=== PATIENT | male | born 1960 | race Asian ===

== ENCOUNTER 2016-04-23 11:45 | Emergency (ER) | payer OTHER ==
--- NOTE | 2016-04-23 14:46 | ED ORDER SUMMARY ---
..... Patient: KAMERON DOMINGO JR OrderSheet [facility] VisitID: [id number] [place] [address] 55y, M Registration Date/Time: 04/23/2016 ORDER SHEET Weight: 66.2 kg Allergies: No Known Drug Allergy GENERAL ORDERS: EKG - ER Stat (11:56 04/23/2016 SBalde R.N. per protocol) (Ack 11:57 LTapper) (12:07 SBalde R.N.) POC Glucose (11:56 04/23/2016 SBalde R.N. per protocol) (12:07 SBalde R.N.) Cardiac Panel Stat (12:04/23/2016 [facility]) (Ack 12:10 LTapper) (12:56 SBalde R.N.) TSH Urgent (12:04/23/2016 [facility]) (Ack 12:10 LTapper) (12:56 SBalde R.N.) Urine Drug Screen Urgent (12:04/23/2016 [facility]) (Ack 12:10 LTapper) (13:35 SBalde R.N.) UA-Culture if indicated Urgent (12:04/23/2016 [facility]) (Ack 12:10 LTapper) (13:35 SBalde R.N.) BNP Urgent (12:04/23/2016 [facility]) (Ack 12:10 LTapper) (12:56 SBalde R.N.) Driver Service Technician (Continuous) (12:04/23/2016 [facility]) (12:56 SBalde R.N.) MEDICATION ORDERS: IV FLUIDS: IV NS : initial bolus 500 mL (1000 mL/hr), then 500 mL/hr for X2 (NOW) (12:04/23/2016 [facility]) (12:56 SBalde R.N.) ORDER SHEET NOTES: [Electronically signed by Constanza Bowser R.N. (16:44 04/23/2016)] [Electronically signed by Stefan Vital DO (11:01 04/24/2016)] [Electronically locked/signed by Constanza Bowser R.N. (16:44 04/23/2016)]
--- NOTE | 2016-04-23 14:46 | ED NURSING NOTES ---
Clinical Report - Nurses [place] [address] [place] [address] 04/23/2016 11:46 [id number] Triage time 11:48 Apr 23 2016. Acuity: LEVEL 2. Chief Complaint: PALPITATIONS. Alert. No acute distress. FRANK COMA SCORE: Frank Coma Scale: 15- eyes open spontaneously (4); best verbal response- oriented x 4 (5); best motor response- obeys commands (6). --11:54 Constanza Bowser R.N. 11:48 04/23/16. BP: 113/78. HR: 80. RR: 18. O2 saturation: 98%. Temp: 98.2 F. Pain level now 0/10. --11:54 Constanza Bowser R.N. Weight: 66.2 kg. Height/Length: 66 inches. BMI: 23.6. --11:48 Constanza Bowser R.N. Medications MetFORMIN HCl Oral 500 mg, 2x a day. --11:52 Constanza Bowser R.N. Zyrtec. --11:52 Constanza Bowser R.N. Singulair Oral. --11:52 Constanza Bowser R.N. Qvar Inhalation, as needed. --11:52 Constanza Bowser R.N. Alfuzosin HCl ER Oral. --11:52 Constanza Bowser R.N. Allergies No Known Drug Allergy. --11:51 Constanza Bowser R.N. Medication/allergy information source: the patient. --11:54 Constanza Bowser R.N. History Arrived by private vehicle. Historian: patient. Primary physician ([facility]). ( 'Heart Palpitations since last week". "It's annoying, not painful, no chest pain". "Just getting over from being sick".). Onset. (1 week). Treatment CYCLE TOURING GUIDE: None. SOCIAL HX: Heavy tobacco smoker (cigarette)- less than 1 pack per day. No alcohol use or drug use. No infectious disease exposure. FALL RISK ASSESSMENT: Fall risk assessment completed. No fall risk identified. NUTRITIONAL RISK ASSESSMENT: The nutritional risk assessment revealed no deficiencies. FUNCTIONAL ASSESSMENT: Functional assessment: no impairments noted. LEARNING NEEDS ASSESSMENT: The learning needs assessment revealed no barriers. SKIN INTEGRITY ASSESSMENT: Skin integrity risk assessment completed. No skin integrity risk identified. --11:54 Constanza Bowser R.N. PROBLEMS: Diabetes Mellitus. Asthma. --11:53 Constanza Bowser R.N. ADDITIONAL SURGERIES: Nose Sx. --11:53 Constanza Bowser R.N. Interventions ID band on patient. To room. --11:54 Constanza Bowser R.N. PHYSICAL ASSESSMENT Ambulatory to room. GENERAL / NEURO / PSYCH: Oriented X 4. Appears anxious. HEENT: Pupils equal, round and reactive to light. RESPIRATORY: Respirations not labored. CVS: Cardiac rhythm: normal sinus rhythm; PVCs. SKIN: Skin is warm and dry. --11:55 Constanza Bowser R.N. NURSING PROGRESS NOTES table runner, pulse oximeter and NIBP monitor placed on patient; embedded engineer- Lead II. Patient gowned. Patient ready for evaluation- chart flagged and ED physician notified. --11:55 Constanza Bowser R.N. Cardiac rhythm: normal sinus rhythm; PVCs. Patient identifiers checked. Call light placed in reach. Side rails up x 2. Bed placed in lowest position. Brakes of bed on. --11:55 Constanza Bowser R.N. EKG time: (11:57 AM). EKG was performed by merna jha and shown to the ED physician. --12:02 Lynn Nunn Finger stick glucose: 147. --12:07 Constanza Bowser R.N. 12:30 04/23/2016 Started bag #1 1000 mL IV Fluids IV NS (Saline); at 1000 mL/hr over 1 hour(s) via site #1. Completed per protocol. --12:56 Constanza Bowser R.N. 12:55 04/23/2016 Site #1 started via IV in the right wrist with an 20g angiocath; one attempt. Blood drawn: rainbow set. Labeled in the presence of the patient. Saline lock flushed with saline. --12:55 Constanza Bowser R.N. 13:35 04/23/2016 IV Fluids IV NS Discontinued: bag #1 infused. Total amount infused: 1000 mL. IV patency established. IV site checked: no pain, redness, or swelling. IV flushed thoroughly. --13:35 Constanza Bowser R.N. DISPOSITION / DISCHARGE Cardiac rhythm: normal sinus rhythm. Departure time: 15:05 Apr 23 2016. Condition at departure: improved and stable. No learning barriers present. Patient verbalized understanding. Written instructions provided in Faroese. No medication instructions. The patient was discharged by the physician. He was discharged home and accompanied by spouse. He left the Emergency Department ambulatory and via private vehicle. Spouse driving. --16:40 Constanza Bowser R.N. 16:39 04/23/16. BP: 112/77. HR: 80. RR: 16. O2 saturation: 100%. Pain level now 0/10. --16:40 Constanza Bowser R.N. Locked/Released at 04/23/2016 16:44 by Constanza Bowser R.N.
--- NOTE | 2016-04-23 14:46 | ED NURSING NOTES ---
Clinical Report - Nurses [place] [place] [address] 04/23/2016 11:46 [id number] TRI[facility] Triage time 11:48 Apr 23 2016. Acuity: LEVEL 2. Chief Complaint: PALPITATIONS. Alert. No acute distress. FRANK COMA SCORE: Frank Coma Scale: 15- eyes open spontaneously (4); best verbal response- oriented x 4 (5); best motor response- obeys commands (6). --11:54 Constanza Bowser R.N. 11:48 04/23/16. BP: 113/78. HR: 80. RR: 18. O2 saturation: 98%. Temp: 98.2 F. Pain level now 0/10. --11:54 Constanza Bowser R.N. Weight: 66.2 kg. Height/Length: 66 inches. BMI: 23.6. --11:48 Constanza Bowser R.N. Medications MetFORMIN HCl Oral 500 mg, 2x a day. --11:52 Constanza Bowser R.N. Zyrtec. --11:52 Constanza Bowser R.N. Singulair Oral. --11:52 Constanza Bowser R.N. Qvar Inhalation, as needed. --11:52 Constanza Bowser R.N. Alfuzosin HCl ER Oral. --11:52 Constanza Bowser R.N. Allergies No Known Drug Allergy. --11:51 Constanza Bowser R.N. Medication/allergy information source: the patient. --11:54 Constanza Bowser R.N. History Arrived by private vehicle. Historian: patient. Primary physician ([facility]). ( 'Heart Palpitations since last week". "It's annoying, not painful, no chest pain". "Just getting over from being sick".). Onset. (1 week). Treatment PHYSICIAN PRACTICE MARKET MANAGER: None. SOCIAL HX: Heavy tobacco smoker (cigarette)- less than 1 pack per day. No alcohol use or drug use. No infectious disease exposure. FALL RISK ASSESSMENT: Fall risk assessment completed. No fall risk identified. NUTRITIONAL RISK ASSESSMENT: The nutritional risk assessment revealed no deficiencies. FUNCTIONAL ASSESSMENT: Functional assessment: no impairments noted. LEARNING NEEDS ASSESSMENT: The learning needs assessment revealed no barriers. SKIN INTEGRITY ASSESSMENT: Skin integrity risk assessment completed. No skin integrity risk identified. --11:54 Constanza Bowser R.N. PROBLEMS: Diabetes Mellitus. Asthma. --11:53 Constanza Bowser R.N. ADDITIONAL SURGERIES: Nose Sx. --11:53 Constanza Bowser R.N. Interventions ID band on patient. To room. --11:54 Constanza Bowser R.N. PHYSICAL ASSESSMENT Ambulatory to room. GENERAL / NEURO / PSYCH: Oriented X 4. Appears anxious. HEENT: Pupils equal, round and reactive to light. RESPIRATORY: Respirations not labored. CVS: Cardiac rhythm: normal sinus rhythm; PVCs. SKIN: Skin is warm and dry. --11:55 Constanza Bowser R.N. NURSING PROGRESS NOTES monitor technician, pulse oximeter and NIBP monitor placed on patient; monitoring engineer- Lead II. Patient gowned. Patient ready for evaluation- chart flagged and ED physician notified. --11:55 Constanza Bowser R.N. Cardiac rhythm: normal sinus rhythm; PVCs. Patient identifiers checked. Call light placed in reach. Side rails up x 2. Bed placed in lowest position. Brakes of bed on. --11:55 Constanza Bowser R.N. EKG time: (11:57 AM). EKG was performed by merna jha and shown to the ED physician. --12:02 Lynn Nunn Finger stick glucose: 147. --12:07 Constanza Bowser R.N. 12:30 04/23/2016 Started bag #1 1000 mL IV Fluids IV NS (Saline); at 1000 mL/hr over 1 hour(s) via site #1. Completed per protocol. --12:56 Constanza Bowser R.N. 12:55 04/23/2016 Site #1 started via IV in the right wrist with an 20g angiocath; one attempt. Blood drawn: rainbow set. Labeled in the presence of the patient. Saline lock flushed with saline. --12:55 Constanza Bowser R.N. 13:35 04/23/2016 IV Fluids IV NS Discontinued: bag #1 infused. Total amount infused: 1000 mL. IV patency established. IV site checked: no pain, redness, or swelling. IV flushed thoroughly. --13:35 Constanza Bowser R.N. DISPOSITION / DISCHARGE Cardiac rhythm: normal sinus rhythm. Departure time: 15:05 Apr 23 2016. Condition at departure: improved and stable. No learning barriers present. Patient verbalized understanding. Written instructions provided in Tristanian. No medication instructions. The patient was discharged by the physician. He was discharged home and accompanied by spouse. He left the Emergency Department ambulatory and via private vehicle. Spouse driving. --16:40 Constanza Bowser R.N. 16:39 04/23/16. BP: 112/77. HR: 80. RR: 16. O2 saturation: 100%. Pain level now 0/10. --16:40 Constanza Bowser R.N. Locked/Released at 04/23/2016 16:44 by Constanza Bowser R.N.
--- NOTE | 2016-04-23 14:46 | ED CLINICAL REPORT ---
Clinical Report - Physicians/Mid Levels [facility] [place] [address] [place] [address] 04/23/2016 11:46 Patient: KAMERON DOMINGO JR Time Seen: 12:04. Arrived- By private vehicle. Historian- patient. HISTORY OF PRESENT ILLNESS Chief Complaint: PALPITATIONS. It is described as an irregular heart beat and missing beats. This started about 1 week ago and is still present. Onset during rest. History of caffeine use prior to onset and decongestants use prior to onset. No history of cocaine use prior to onset or amphetamine use prior to onset. It was gradual in onset and has been waxing/waning. Modifying factors. Not worsened by anything. Not relieved by anything. No chest pain or discomfort, difficulty breathing, fainting episodes or dizziness. ( Had "the flu" about 2 weeks ago took decongestants (but none for about 1 week)). Similar symptoms previously: None. Recent medical care: Not recently seen/assessed. REVIEW OF SYSTEMS No fever, chills, orthopnea, calf pain or headache. No sore throat, blurred vision, nausea, abdominal pain or black stools. No difficulty with urination, skin rash, vomiting, diarrhea or bloody stools. The patient has had a cough (1 week ago). Psych: he feels anxious about the palpitations. All systems otherwise negative, except as recorded above. PAST HISTORY Type II diabetes mellitus treated with oral med. PCP: [facility] Asthma DM II (oral meds) Prior stone fish sting to left foot (over 10 years ago). No history of atrial fibrillation, congestive heart failure, valvular heart disease, thyroid disease or coronary artery disease. No history of cardiomegaly. Has not had depression. Medications: Alfuzosin HCl ER Oral. Qvar Inhalation, as needed. Singulair Oral. Zyrtec. MetFORMIN HCl Oral 500 mg, 2x a day. Allergies: No Known Drug Allergy. SOCIAL HISTORY Smoker- current status unknown. No alcohol use or drug use. Is a local resident. ADDITIONAL NOTES The nursing notes have been reviewed. PHYSICAL EXAM Vital Signs: 04/23/2016 11:48 BP: 113/78. HR: 80. RR: 18. O2 saturation: 98%. Temp: 98.2 F. Appearance: Alert. Oriented X3. No acute distress. Eyes: Pupils equal, round and reactive to light. Eyes normal inspection. ENT: Nose normal. Pharynx normal. Neck: Normal inspection. Neck supple. No JVD, meningeal signs, lymphadenopathy or thyromegaly. CVS: Abnormal rhythm, which is irregularly irregular with brief pauses. Normal heart rate and rhythm. Heart sounds normal. Pulses normal. Respiratory: No respiratory distress. Breath sounds normal. Chest nontender. Abdomen: Soft and nontender. Bowel sounds normal. No mass. Back: Normal external inspection. Skin: No cyanosis. Skin warm and dry. Normal skin color. No rash. Normal skin turgor. Skin not cool on palpation. No pallor or diaphoresis. Extremities: Extremities exhibit normal ROM. No calf tenderness. No lower extremity edema. Neuro: Oriented X 3. No motor deficit. No sensory deficit. LABS, X-RAYS, AND EKG EKG: EKG time: (11:57). Normal sinus rhythm. Rate: 75. Occasional unifocal ectopic beats. Premature ventricular contractions. No runs of ectopic beats. Normal LUIS E. Normal QRS complex. Normal axis. Normal ST and T waves. The study has been interpreted contemporaneously by me. The EKG appears to be a good tracing. Rhythm Strip #1: Normal sinus rhythm. Occasional unifocal premature ventricular contractions. Laboratory Tests: UA-Culture if indicated: (MEGHAN: 04/23/2016 12:30) ( MsgRcvd 04/23/2016 12:49) Final results Test Result Flag Units (Reference) URINE COLOR YELLOW URINE APPEARANCE CLEAR URINE GLUCOSE NEGATIVE (NEGATIVE) URINE BILIRUBIN NEGATIVE (NEGATIVE) URINE KETONE NEGATIVE (NEGATIVE) URINE SPECIFIC GRAVITY <= 1.005 L (1.010-1.030) URINE PH 6.0 (5.0-8.0) URINE PROTEIN NEGATIVE (NEGATIVE) URINE UROBILINOGEN 0.2 EU/dL (0.2-1.0) URINE NITRITE NEGATIVE (NEGATIVE) URINE BLOOD NEGATIVE (NEGATIVE) URINE LEUK ESTERASE NEGATIVE (NEGATIVE) URINE RBC RARE rbc/hpf (0-1) URINE WBC NONE SEEN wbc/hpf (0-1) URINE EPITHELIAL CELLS RARE EPI/hpf (0-5) URINE BACTERIA NONE SEEN (NONE SEEN) URINE COMMENT CULT NOT INDICATED URINE CULTURES ARE SET-UP BASED ON THE FOLLOWING CRITERIA:POSITIVE NITRITEPOSITIVE LEUKOCYTE ESTERASEGREATER THAN 10 WHITE BLOOD CELLSMODERATE (2+) OR GREATER BACTERIA CBC w Diff: (MEGHAN: 04/23/2016 12:30) ( [facility] 04/23/2016 12:37) Final results Test Result Flag Units (Reference) WHITE BLOOD COUNT 4.8 K/uL (4.5-11.5) RED BLOOD COUNT 4.75 M/uL (4.50-5.90) HEMOGLOBIN 14.2 gm/dL (13.5-17.5) HEMATOCRIT 42.8 % (41.0-53.0) MEAN CELL VOLUME 90 fL (80-100) MEAN CORPUSCULAR HGB 30 pg (26-34) MEAN CORPUSCULAR HGB CONC 33 g/dL (31-37) RED CELL DISTRIBUTION WIDTH 13.1 % (11.6-14.8) PLATELET COUNT 186 K/uL (150-400) NEUTROPHIL % 51.2 % (50-75) LYMPH % 35.2 % (25-40) MONO % 11.8 % (3-14) EOSINOPHIL % 1.1 % (0-4) BASOPHIL % 0.7 % (0-2) BNP: (MEGHAN: 04/23/2016 12:30) ( [facility] 04/23/2016 12:57) Final results Test Result Flag Units (Reference) B-TYPE NATRIURETIC PEPTIDE 9.2 pg/ml (5-100) Urine Drug Screen: (MEGHAN: 04/23/2016 12:30) ( [facility] 04/23/2016 13:21) Final results Test Result Flag Units (Reference) AMPHETAMINE/METHAMPHETAMINE NEGATIVE (NEGATIVE) BARBITURATE NEGATIVE (NEGATIVE) BENZODIAZEPINE NEGATIVE (NEGATIVE) CANNABINOID NEGATIVE (NEGATIVE) COCAINE NEGATIVE (NEGATIVE) ECSTASY NEGATIVE (NEGATIVE) METHADONE NEGATIVE (NEGATIVE) OPIATE NEGATIVE (NEGATIVE) The urine drug screen is a qualitative screening test fordrug overdose and abuse. All screen results should beconsidered as presumptive.Drugs screened for are as follows:BenzodiazepinesCocaineAmphetamines/MetamphetaminesTHC (Tetrahydrocannabinol)OpiatesBarbituratesEcstasyMethadonePositive results are unconfirmed. For confirmation, notifythe lab for the specimen to be sent to the reference lab.All confirmations must be performed by a differentmethodology.The ingestion of natural herbal and plant productscontaining Ephedra/Ephedra metabolites can produce in urineone or more substances capable of cross reacting withamphetamine/methamphetamine immunoassays. These testsprovide a preliminary result only. A more specificalternative chemical method must be used to obtain aconfirmed analytical result. CPK: (MEGHAN: 04/23/2016 12:30) ( MsgRcvd 04/23/2016 13:19) Final results Test Result Flag Units (Reference) GLUCOSE 141 H mg/dL (70-110) BUN 11 mg/dL (7-18) CREATININE 0.9 mg/dL (0.6-1.3) Estimated GFR >60 mL/min Estimated GFR- >60 mL/min Note: Persistent reduction over 3 months in eGFR<60 mL/min/1.73 m2 defines CKD. Patients with eGFR values>=60 mL/min/1.73 m2 may also have CKD if evidence ofpersistent proteinuria. Additional information may be foundat www.kidney.org. SODIUM 142 mmol/L (136-145) POTASSIUM 4.0 mmol/L (3.5-5.1) CHLORIDE 108 H mmol/L (98-107) CARBON DIOXIDE 26 mmol/L (21-32) CALCIUM 8.6 mg/dL (8.5-10.1) TOTAL PROTEIN 7.1 g/dL (6.4-8.2) ALBUMIN 3.8 g/dL (3.3-5.0) BILIRUBIN, TOTAL 0.7 mg/dL (0.0-1.0) ALKALINE PHOSPHATASE 75 U/L (46-116) AST (SGOT) 14 L U/L (15-37) ALT (SGPT) 31 U/L (12-78) CPK 83 U/L (24-260) MAGNESIUM 1.8 mg/dL (1.8-2.4) TROPONIN I <0.05 ng/mL (0.00-1.5) TROPONIN REFERENCE RANGE:<0.1 NEGATIVE0.1-1.5 INDETERMINANT>1.5 POSITIVE THYROID STIMULATING HORMONE 1.012 uIU/mL (0.30-3.74) . Bedside Tests: Glucose: mild hyperglycemia - 147 (performed at bedside). Pulse Oximetry: 04/23/2016 11:48 O2 saturation: 98%. (FIO2 - room air). Interpretation: normal. PROGRESS AND PROCEDURES Course of Care: Normal Saline 1 liter IVPB given. Other than sensation of PVC - symptoms correlate to the PVC 's on the monitor, pt is asymptomatic. Labs unremarkable (mild hyperglycemia - known DM II). Patient/family counseled. Old ED records reviewed. Disposition: Discharged. Condition: stable and improved. CLINICAL IMPRESSION Palpitations Occasional PVC's. No multifocal PVC's, bigeminy or trigeminy. Chronic, moderately well controlled type 2 diabetes with hyperglycemia. No coma. INSTRUCTIONS Do not work for three days. Avoid stimulants (such as cigarettes, coffee, cold medicines, sinus medicines, street drugs). Do not smoke. Seek medical help to quit smoking. Warnings: Further evaluation is necessary in order to obtain test results and conduct further tests. It is very important to follow up with a physician. GENERAL WARNINGS: Return or contact your physician immediately if your condition worsens or changes unexpectedly, if not improving as expected, or if other problems arise. Your Current Medications: CONTINUE TAKING THE FOLLOWING MEDICATIONS: Alfuzosin HCl ER Oral. MetFORMIN HCl Oral : 500 mg 2x a day. Qvar Inhalation : prn. Singulair Oral. Zyrtec*. OTC Medications: Aspirin 325 mg (available over the counter): take 1 orally every 24 hours. Dispense thirty (30). No refills. Follow-up: Follow up with your doctor tomorrow. (Electronically signed by Stefan Vital DO 04/24/2016 11:01)
--- NOTE | 2016-04-23 14:46 | ED ORDER SUMMARY ---
..... Patient: KAMERON DOMINGO JR OrderSheet [facility] VisitID: [id number] [place] [address] 55y, M Registration Date/Time: 04/23/2016 ORDER SHEET Weight: 66.2 kg Allergies: No Known Drug Allergy GENERAL ORDERS: EKG - ER Stat (11:56 04/23/2016 SBalde R.N. per protocol) (Ack 11:57 LTapper) (12:07 SBalde R.N.) POC Glucose (11:56 04/23/2016 SBalde R.N. per protocol) (12:07 SBalde R.N.) Cardiac Panel Stat (12:04/23/2016 [facility]) (Ack 12:10 LTapper) (12:56 SBalde R.N.) TSH Urgent (12:04/23/2016 [facility]) (Ack 12:10 LTapper) (12:56 SBalde R.N.) Urine Drug Screen Urgent (12:04/23/2016 [facility]) (Ack 12:10 LTapper) (13:35 SBalde R.N.) UA-Culture if indicated Urgent (12:04/23/2016 [facility]) (Ack 12:10 LTapper) (13:35 SBalde R.N.) BNP Urgent (12:04/23/2016 [facility]) (Ack 12:10 LTapper) (12:56 SBalde R.N.) Medical Appointment Scheduler (Continuous) (12:04/23/2016 [facility]) (12:56 SBalde R.N.) MEDICATION ORDERS: IV FLUIDS: IV NS : initial bolus 500 mL (1000 mL/hr), then 500 mL/hr for X2 (NOW) (12:04/23/2016 [facility]) (12:56 SBalde R.N.) ORDER SHEET NOTES: [Electronically signed by Constanza Bowser R.N. (16:44 04/23/2016)] [Electronically signed by Stefan Vital DO (11:01 04/24/2016)] [Electronically locked/signed by Constanza Bowser R.N. (16:44 04/23/2016)]
--- NOTE | 2016-04-24 11:02 | ED DISCHARGE INSTRUCTIONS ---
Patient: KAMERON DOMINGO JR General Instructions [facility] VisitID: [id number] [place] [address] 55y, M Registration Date/Time: 04/23/2016 Palpitations Occasional PVC's. No multifocal PVC's, bigeminy or trigeminy. Chronic, moderately well controlled type 2 diabetes with hyperglycemia. No coma. INSTRUCTIONS Do not work for three days. Avoid stimulants (such as cigarettes, coffee, cold medicines, sinus medicines, street drugs). Do not smoke. Seek medical help to quit smoking. Warnings: Further evaluation is necessary in order to obtain test results and conduct further tests. It is very important to follow up with a physician. GENERAL WARNINGS: Return or contact your physician immediately if your condition worsens or changes unexpectedly, if not improving as expected, or if other problems arise. Your Current Medications: CONTINUE TAKING THE FOLLOWING MEDICATIONS: Alfuzosin HCl ER Oral. MetFORMIN HCl Oral : 500 mg 2x a day. Qvar Inhalation : prn. Singulair Oral. Zyrtec*. OTC Medications: Aspirin 325 mg (available over the counter): take 1 orally every 24 hours. Dispense thirty (30). No refills. Follow-up: Follow up with your doctor tomorrow. ADDITIONAL INFORMATION Heart Palpitations Palpitations refers to the feeling that your heart is beating hard, fast or irregular. Some people describe it as "pounding" or "skipped beats". Palpitations may occur in persons with heart disease, but can also occur in healthy persons. Heart-Related Causes: Arrhythmia (a change from the heart's normal rhythm) Disease of the heart valves Wul-Noxtv-Xiyqrit Causes: Certain medicines (such as asthma inhalers and decongestants) Some herbal supplements, energy drinks and pills, and weight loss pills Illegal stimulant drugs (such as cocaine, crank, methamphetamine, PCP) Caffeine, alcohol and tobacco Medical conditions such as thyroid disease, anemia, anxiety and panic disorder Sometimes the cause cannot be found. Home Care: Avoid excess caffeine, alcohol, tobacco and any stimulant drugs. Tell your doctor about any prescription or [id number] or herbal medicines you take. Follow Up with your doctor or as advised by our staff. Get Prompt Medical Attention if any of the following occur together with palpitations: Weakness, dizziness, light-headed or fainting Chest pain or shortness of breath Rapid heart rate (over 120 beats per minute, at rest) Palpitations that lasts over 20 minutes Weakness of an arm or leg or one side of the face Difficulty with speech or vision Diabetes with High Blood Sugar You have been treated for high blood sugar (hyperglycemia). This may be becauseof an infection or other illness;eating too many sweets or starches ; not taking enough insulin. Home care High blood sugar may cause symptoms that you can learn to recognize, such as these: If you feel like your blood sugar may be too high, measure it using a blood or urine test. If it is above your usual range, use the "sliding scale"rRegular insulin dose your doctor gave you to correct this. If no "sliding scale" orders were given, contact your doctor for further advice. If your blood sugar is over 300, and you can't reach your doctor, go to the hospital emergency room. Monitor and write down your blood sugars - and insulin dose, if you take insulin - atleast twice a day. Do this before breakfast and before dinner. Do this for the next 3 to 5 days. Follow-up care Follow up with your health care provderduring the next week to review your blood sugar records. You will find out if you need to adjust your dose of insulin or other medicine for blood sugar. When to seek medical care Get prompt medical attention if either of these occur: High blood sugar.Symptoms are frequent urination, feeling dizzy, thirst, headache, nausea or vomiting, abdominal pain, and drowsiness or loss of consciousness. Low blood sugar. Symptoms are fatigue, headache, shakes, excess sweating, hunger, anxiety, reduced vision, drowsiness, weakness, confusion or loss of consciousness, and seizure. How To Quit Smoking Smoking is one of the hardest habits to break. About half of all those who have ever smoked have been able to quit, and most of those (about 70%) who still smoke want to quit. Here are some of the best ways to stop smoking. Keep Trying: It takes most smokers about 8 tries before they are finally able to fully quit. So, the more often you try and fail, the better your chance of quitting the next time! So, don't give up! Go Cold [place]: Most ex-smokers quit cold turkey. Trying to cut back gradually doesn't seem to work as well, perhaps because it continues the smoking habit. Also, it is possible to fool yourself by inhaling more while smoking fewer cigarettes. This results in the same amount of nicotine in your body! Get Support: Support programs can make an important difference, especially for the heavy smoker. These groups offer lectures, methods to change your behavior and peer support. Call the free national Quitline for more information. 786-OOSO-ITV (658-557-0232). Low-cost or free programs are offered by many hospitals, local chapters of the [place] [employer] (834-170-0961) and the [place] [employer] (938-681-3192). Support at home is important too. Non-smokers can help by offering praise and encouragement. If the smoker fails to quit, encourage them to try again! Yujg-Brp-Uydyrhg Medicines: For those who can't quit on their own, Nicotine Replacement Therapy (NRT) may make quitting much easier. Certain aids such as the nicotine patch, gum and lozenge are available without a prescription. However, it is best to use these under the guidance of your doctor. The skin patch provides a steady supply of nicotine to the body. Nicotine gum and lozenge gives temporary bursts of low levels of nicotine. Both methods take the edge off the craving for cigarettes. WARNING: If you feel symptoms of nicotine overdose, such as nausea, vomiting, dizziness, weakness, or fast heartbeat, stop using these and see your doctor. Prescription Medicines: After evaluating your smoking patterns and prior attempts at quitting, your doctor may offer a prescription medicine such as bupropion (Zyban, Wellbutrin), varenicline (Chantix, Champix), a niocotine inhaler or nasal spray. Each has its unique advantage and side effects which your doctor can review with you. Health Benefits Of Quitting: The benefits of quitting start right away and keep improving the longer you go without smokin minutes: blood pressure and pulse return to normal 8 hours: oxygen levels return to normal 2 days: ability to smell and taste begins to improve as damaged nerves start to regrow 2-3 weeks: circulation and lung function improves 1-9 months: decreased cough, congestion and shortness of breath; less tired 1 year: risk of heart attack decreases by half 5 years: risk of lung cancer decreases by half; risk of stroke becomes the same as a non-smoker For information about how to quit smoking, visit the following links: [employer] [place] , Clearing the Air, Quit Smoking Today - an online booklet. http://www.smokefree.gov/pubs/clearing_the_air.pdf Smokefree.gov http://smokefree.gov/ QuitNet http://www.quitnet.com/ Aspirin Oral tablet What is this medicine? ASPIRIN ( pir in) is a pain reliever. It is used to treat mild pain and fever. This medicine is also used as directed by a doctor to prevent and to treat heart attacks, to prevent strokes, and to treat arthritis or inflammation. How should I use this medicine? Take this medicine by mouth with a glass of water. Follow the directions on the package or prescription label. You can take this medicine with or without food. If it upsets your stomach, take it with food. Do not take your medicine more often than directed. Talk to your applique sewer regarding the use of this medicine in children. While this drug may be prescribed for children as young as 12 years of age for selected conditions, precautions do apply. Children and teenagers should not use this medicine to treat chicken pox or flu symptoms unless directed by a doctor. Patients over 65 years old may have a stronger reaction and need a smaller dose. What side effects may I notice from receiving this medicine? Side effects that you should report to your doctor or health health care recruiter as soon as possible: allergic reactions like skin rash, itching or hives, swelling of the face, lips, or tongue breathing problems changes in hearing, ringing in the ears confusion general ill feeling or flu-like symptoms pain on swallowing redness, blistering, peeling or loosening of the skin, including inside the mouth or nose signs and symptoms of bleeding such as bloody or black, tarry stools; red or dark-brown urine; spitting up blood or brown material that looks like coffee grounds; red spots on the skin; unusual bruising or bleeding from the eye, gums, or nose trouble passing urine or change in the amount of urine unusually weak or tired yellowing of the eyes or skin Side effects that usually do not require medical attention (report to your doctor or health health care recruiter if they continue or are bothersome): diarrhea or constipation nausea, vomiting stomach gas, heartburn What may interact with this medicine? Do not take this medicine with any of the following medications: cidofovir ketorolac probenecid This medicine may also interact with the following medications: alcohol alendronate bismuth subsalicylate flavocoxid herbal supplements like feverfew, garlic, rishi, ginkgo biloba, horse chestnut medicines for diabetes or glaucoma like acetazolamide, methazolamide medicines for gout medicines that treat or prevent blood clots like enoxaparin, heparin, ticlopidine, warfarin other aspirin and aspirin-like medicines NSAIDs, medicines for pain and inflammation, like ibuprofen or naproxen pemetrexed sulfinpyrazone varicella live vaccine What if I miss a dose? If you are taking this medicine on a regular schedule and miss a dose, take it as soon as you can. If it is almost time for your next dose, take only that dose. Do not take double or extra doses. Where should I keep my medicine? Keep out of the reach of children. Store at room temperature between 15 and 30 degrees C (59 and 86 degrees F). Protect from heat and moisture. Do not use this medicine if it has a strong vinegar smell. Throw away any unused medicine after the expiration date. What should I tell my health care provider before I take this medicine? They need to know if you have any of these conditions: anemia asthma bleeding problems child with chickenpox, the flu, or other viral infection diabetes gout if you frequently drink alcohol containing drinks kidney disease liver disease low level of vitamin K lupus smoke tobacco stomach ulcers or other problems an unusual or allergic reaction to aspirin, tartrazine dye, other medicines, dyes, or preservatives or trying to get breast-feeding What should I watch for while using this medicine? If you are treating yourself for pain, tell your doctor or health health care recruiter if the pain lasts more than 10 days, if it gets worse, or if there is a new or different kind of pain. Tell your doctor if you see redness or swelling. Also, check with your doctor if you have a fever that lasts for more than 3 days. Only take this medicine to prevent heart attacks or blood clotting if prescribed by your doctor or health health care recruiter. Do not take aspirin or aspirin-like medicines with this medicine. Too much aspirin can be dangerous. Always read the labels carefully. This medicine can irritate your stomach or cause bleeding problems. Do not smoke cigarettes or drink alcohol while taking this medicine. Do not lie down for 30 minutes after taking this medicine to prevent irritation to your throat. If you are scheduled for any medical or dental procedure, tell your healthcare provider that you are taking this medicine. You may need to stop taking this medicine before the procedure. You have been given the following additional information: Palpitations Diabetic Hyperglycemia Smoking Cessation Aspirin Oral tablet Do not work for three days. (Electronically signed by Stefan Vital DO 04/24/2016 11:01)
--- NOTE | 2016-04-24 11:02 | ED DISCHARGE INSTRUCTIONS ---
Patient: KAMERON DOMINGO JR General Instructions [facility] VisitID: [id number] [place] [address] 55y, M Registration Date/Time: 04/23/2016 Palpitations Occasional PVC's. No multifocal PVC's, bigeminy or trigeminy. Chronic, moderately well controlled type 2 diabetes with hyperglycemia. No coma. INSTRUCTIONS Do not work for three days. Avoid stimulants (such as cigarettes, coffee, cold medicines, sinus medicines, street drugs). Do not smoke. Seek medical help to quit smoking. Warnings: Further evaluation is necessary in order to obtain test results and conduct further tests. It is very important to follow up with a physician. GENERAL WARNINGS: Return or contact your physician immediately if your condition worsens or changes unexpectedly, if not improving as expected, or if other problems arise. Your Current Medications: CONTINUE TAKING THE FOLLOWING MEDICATIONS: Alfuzosin HCl ER Oral. MetFORMIN HCl Oral : 500 mg 2x a day. Qvar Inhalation : prn. Singulair Oral. Zyrtec*. OTC Medications: Aspirin 325 mg (available over the counter): take 1 orally every 24 hours. Dispense thirty (30). No refills. Follow-up: Follow up with your doctor tomorrow. ADDITIONAL INFORMATION Heart Palpitations Palpitations refers to the feeling that your heart is beating hard, fast or irregular. Some people describe it as "pounding" or "skipped beats". Palpitations may occur in persons with heart disease, but can also occur in healthy persons. Heart-Related Causes: Arrhythmia (a change from the heart's normal rhythm) Disease of the heart valves Xfw-Xmdni-Fbwtogt Causes: Certain medicines (such as asthma inhalers and decongestants) Some herbal supplements, energy drinks and pills, and weight loss pills Illegal stimulant drugs (such as cocaine, crank, methamphetamine, PCP) Caffeine, alcohol and tobacco Medical conditions such as thyroid disease, anemia, anxiety and panic disorder Sometimes the cause cannot be found. Home Care: Avoid excess caffeine, alcohol, tobacco and any stimulant drugs. Tell your doctor about any prescription or irgx-nsd-njgvqgx or herbal medicines you take. Follow Up with your doctor or as advised by our staff. Get Prompt Medical Attention if any of the following occur together with palpitations: Weakness, dizziness, light-headed or fainting Chest pain or shortness of breath Rapid heart rate (over 120 beats per minute, at rest) Palpitations that lasts over 20 minutes Weakness of an arm or leg or one side of the face Difficulty with speech or vision Diabetes with High Blood Sugar You have been treated for high blood sugar (hyperglycemia). This may be becauseof an infection or other illness;eating too many sweets or starches ; not taking enough insulin. Home care High blood sugar may cause symptoms that you can learn to recognize, such as these: If you feel like your blood sugar may be too high, measure it using a blood or urine test. If it is above your usual range, use the "sliding scale"rRegular insulin dose your doctor gave you to correct this. If no "sliding scale" orders were given, contact your doctor for further advice. If your blood sugar is over 300, and you can't reach your doctor, go to the hospital emergency room. Monitor and write down your blood sugars - and insulin dose, if you take insulin - atleast twice a day. Do this before breakfast and before dinner. Do this for the next 3 to 5 days. Follow-up care Follow up with your health care provderduring the next week to review your blood sugar records. You will find out if you need to adjust your dose of insulin or other medicine for blood sugar. When to seek medical care Get prompt medical attention if either of these occur: High blood sugar.Symptoms are frequent urination, feeling dizzy, thirst, headache, nausea or vomiting, abdominal pain, and drowsiness or loss of consciousness. Low blood sugar. Symptoms are fatigue, headache, shakes, excess sweating, hunger, anxiety, reduced vision, drowsiness, weakness, confusion or loss of consciousness, and seizure. How To Quit Smoking Smoking is one of the hardest habits to break. About half of all those who have ever smoked have been able to quit, and most of those (about 70%) who still smoke want to quit. Here are some of the best ways to stop smoking. Keep Trying: It takes most smokers about 8 tries before they are finally able to fully quit. So, the more often you try and fail, the better your chance of quitting the next time! So, don't give up! Go Cold [place]: Most ex-smokers quit cold turkey. Trying to cut back gradually doesn't seem to work as well, perhaps because it continues the smoking habit. Also, it is possible to fool yourself by inhaling more while smoking fewer cigarettes. This results in the same amount of nicotine in your body! Get Support: Support programs can make an important difference, especially for the heavy smoker. These groups offer lectures, methods to change your behavior and peer support. Call the free national Quitline for more information. 407-NSEJ-GBN (460-420-5859). Low-cost or free programs are offered by many hospitals, local chapters of the [place] [employer] (424-023-0277) and the [place] [employer] (582-774-6126). Support at home is important too. Non-smokers can help by offering praise and encouragement. If the smoker fails to quit, encourage them to try again! Qmnp-Sfw-Hpohgyu Medicines: For those who can't quit on their own, Nicotine Replacement Therapy (NRT) may make quitting much easier. Certain aids such as the nicotine patch, gum and lozenge are available without a prescription. However, it is best to use these under the guidance of your doctor. The skin patch provides a steady supply of nicotine to the body. Nicotine gum and lozenge gives temporary bursts of low levels of nicotine. Both methods take the edge off the craving for cigarettes. WARNING: If you feel symptoms of nicotine overdose, such as nausea, vomiting, dizziness, weakness, or fast heartbeat, stop using these and see your doctor. Prescription Medicines: After evaluating your smoking patterns and prior attempts at quitting, your doctor may offer a prescription medicine such as bupropion (Zyban, Wellbutrin), varenicline (Chantix, Champix), a niocotine inhaler or nasal spray. Each has its unique advantage and side effects which your doctor can review with you. Health Benefits Of Quitting: The benefits of quitting start right away and keep improving the longer you go without smokin minutes: blood pressure and pulse return to normal 8 hours: oxygen levels return to normal 2 days: ability to smell and taste begins to improve as damaged nerves start to regrow 2-3 weeks: circulation and lung function improves 1-9 months: decreased cough, congestion and shortness of breath; less tired 1 year: risk of heart attack decreases by half 5 years: risk of lung cancer decreases by half; risk of stroke becomes the same as a non-smoker For information about how to quit smoking, visit the following links: National Cancer [place] , Clearing the Air, Quit Smoking Today - an online booklet. http://www.smokefree.gov/pubs/clearing_the_air.pdf Smokefree.gov http://smokefree.gov/ QuitNet http://www.quitnet.com/ Aspirin Oral tablet What is this medicine? ASPIRIN ( pir in) is a pain reliever. It is used to treat mild pain and fever. This medicine is also used as directed by a doctor to prevent and to treat heart attacks, to prevent strokes, and to treat arthritis or inflammation. How should I use this medicine? Take this medicine by mouth with a glass of water. Follow the directions on the package or prescription label. You can take this medicine with or without food. If it upsets your stomach, take it with food. Do not take your medicine more often than directed. Talk to your tool and die technician regarding the use of this medicine in children. While this drug may be prescribed for children as young as 12 years of age for selected conditions, precautions do apply. Children and teenagers should not use this medicine to treat chicken pox or flu symptoms unless directed by a doctor. Patients over 65 years old may have a stronger reaction and need a smaller dose. What side effects may I notice from receiving this medicine? Side effects that you should report to your doctor or health critical care nurse specialist as soon as possible: allergic reactions like skin rash, itching or hives, swelling of the face, lips, or tongue breathing problems changes in hearing, ringing in the ears confusion general ill feeling or flu-like symptoms pain on swallowing redness, blistering, peeling or loosening of the skin, including inside the mouth or nose signs and symptoms of bleeding such as bloody or black, tarry stools; red or dark-brown urine; spitting up blood or brown material that looks like coffee grounds; red spots on the skin; unusual bruising or bleeding from the eye, gums, or nose trouble passing urine or change in the amount of urine unusually weak or tired yellowing of the eyes or skin Side effects that usually do not require medical attention (report to your doctor or health critical care nurse specialist if they continue or are bothersome): diarrhea or constipation nausea, vomiting stomach gas, heartburn What may interact with this medicine? Do not take this medicine with any of the following medications: cidofovir ketorolac probenecid This medicine may also interact with the following medications: alcohol alendronate bismuth subsalicylate flavocoxid herbal supplements like feverfew, garlic, rishi, ginkgo biloba, horse chestnut medicines for diabetes or glaucoma like acetazolamide, methazolamide medicines for gout medicines that treat or prevent blood clots like enoxaparin, heparin, ticlopidine, warfarin other aspirin and aspirin-like medicines NSAIDs, medicines for pain and inflammation, like ibuprofen or naproxen pemetrexed sulfinpyrazone varicella live vaccine What if I miss a dose? If you are taking this medicine on a regular schedule and miss a dose, take it as soon as you can. If it is almost time for your next dose, take only that dose. Do not take double or extra doses. Where should I keep my medicine? Keep out of the reach of children. Store at room temperature between 15 and 30 degrees C (59 and 86 degrees F). Protect from heat and moisture. Do not use this medicine if it has a strong vinegar smell. Throw away any unused medicine after the expiration date. What should I tell my health care provider before I take this medicine? They need to know if you have any of these conditions: anemia asthma bleeding problems child with chickenpox, the flu, or other viral infection diabetes gout if you frequently drink alcohol containing drinks kidney disease liver disease low level of vitamin K lupus smoke tobacco stomach ulcers or other problems an unusual or allergic reaction to aspirin, tartrazine dye, other medicines, dyes, or preservatives or trying to get breast-feeding What should I watch for while using this medicine? If you are treating yourself for pain, tell your doctor or health critical care nurse specialist if the pain lasts more than 10 days, if it gets worse, or if there is a new or different kind of pain. Tell your doctor if you see redness or swelling. Also, check with your doctor if you have a fever that lasts for more than 3 days. Only take this medicine to prevent heart attacks or blood clotting if prescribed by your doctor or health critical care nurse specialist. Do not take aspirin or aspirin-like medicines with this medicine. Too much aspirin can be dangerous. Always read the labels carefully. This medicine can irritate your stomach or cause bleeding problems. Do not smoke cigarettes or drink alcohol while taking this medicine. Do not lie down for 30 minutes after taking this medicine to prevent irritation to your throat. If you are scheduled for any medical or dental procedure, tell your healthcare provider that you are taking this medicine. You may need to stop taking this medicine before the procedure. You have been given the following additional information: Palpitations Diabetic Hyperglycemia Smoking Cessation Aspirin Oral tablet Do not work for three days. (Electronically signed by Stefan Vital DO 04/24/2016 11:01)
--- NOTE | 2016-04-24 11:02 | ED MAR SUMMARY ---
..... Medication Administration Record [facility] [address] [place] [address] Patient: KAMERON DOMINGO Visit ID: [id number] 55y, M Weight: 66.2 kg Height/Length: 66 in BMI: 23.6 ALLERGIES: No Known Drug Allergy Start 12:30 04/23/2016 Constanza Bowser R.N., Stop 13:35 04/23/2016 Constanza Bowser R.N. Medication Administered: IV NS (SALINE), Dose: IV Fluids over 1 hour(s), Rate: 1000 mL/hr, Dispensed: 1000 mL bag, Site: #1. Medication Ordered: IV NS : initial bolus 500 mL (1000 mL/hr), then 500 mL/hr for X2 (NOW).
--- NOTE | 2016-04-24 11:02 | ED MED RECONCILIATION SUMMARY ---
Patient: DOMINGOKAMERON JR Medication Reconciliation Report [facility] VisitID: [id number] [address] [place] [address] 55y, M Registration Date/Time: 04/23/2016 Weight: 66.2 kg Height/Length: 66 in. BMI: 23.6 ALLERGIES: No Known Drug Allergy The patient's Home Medications are listed below: CONTINUE TAKING THE FOLLOWING MEDICATIONS: Alfuzosin HCl ER Oral MetFORMIN HCl Oral 500 mg, 2x a day Qvar Inhalation Singulair Oral Zyrtec The source(s) of the original Home Medication information: patient The following Medications were given to the patient in the Emergency Department: IV NS IV Fluids bolus 0, then 1000 mL/hr, administered: 04/23/2016 12:30:00 PM The following Medications were prescribed to the patient: Aspirin 325 mg (available over the counter): take 1 orally every 24 hours. Dispense thirty (30). No refills. -- Stefan Vital,
--- NOTE | 2016-04-24 11:02 | ED MED RECONCILIATION SUMMARY ---
Patient: DOMINGOKAMERON JR Medication Reconciliation Report [facility] VisitID: [id number] [address] [place] [address] 55y, M Registration Date/Time: 04/23/2016 Weight: 66.2 kg Height/Length: 66 in. BMI: 23.6 ALLERGIES: No Known Drug Allergy The patient's Home Medications are listed below: CONTINUE TAKING THE FOLLOWING MEDICATIONS: Alfuzosin HCl ER Oral MetFORMIN HCl Oral 500 mg, 2x a day Qvar Inhalation Singulair Oral Zyrtec The source(s) of the original Home Medication information: patient The following Medications were given to the patient in the Emergency Department: IV NS IV Fluids bolus 0, then 1000 mL/hr, administered: 04/23/2016 12:30:00 PM The following Medications were prescribed to the patient: Aspirin 325 mg (available over the counter): take 1 orally every 24 hours. Dispense thirty (30). No refills. -- Stefan Vital,
--- NOTE | 2016-04-24 11:02 | ED MAR SUMMARY ---
..... Medication Administration Record [address] [place] [address] Patient: KAMERON DOMINGO Visit ID: [id number] 55y, M Weight: 66.2 kg Height/Length: 66 in BMI: 23.6 ALLERGIES: No Known Drug Allergy Start 12:30 04/23/2016 Constanza Bowser R.N., Stop 13:35 04/23/2016 Constanza Bowser R.N. Medication Administered: IV NS (SALINE), Dose: IV Fluids over 1 hour(s), Rate: 1000 mL/hr, Dispensed: 1000 mL bag, Site: #1. Medication Ordered: IV NS : initial bolus 500 mL (1000 mL/hr), then 500 mL/hr for X2 (NOW).
== END 2016-04-23 15:05 | disposition home or self-care (01) ==
LOC: ED SRH 11:45
DX: R00.2 Palpitations (principal); I49.3 Ventricular premature depolarization; E11.65 Type 2 diabetes mellitus with hyperglycemia; Z79.84 Long term (current) use of oral hypoglycemic drugs; Z79.899 Other long term (current) drug therapy; F17.200 Nicotine dependence, unspecified, uncomplicated
CPT/HCPCS: 90004; 90098; 90100; 90616; 91320; 92610; 92720; 92760; 92761; 92762; 92763; 92764; 92765; 92766; 92767; 93140; 95059